=== PATIENT | male | born 1950 | race Caucasian/White ===

== ENCOUNTER 2017-08-03 10:37 | Day surgery (SDC) | payer BC ==
[~2017-08-03] VITALS: Ht 177.8 cm; Wt 72.6 kg
[~2017-08-03 10:37] MED LIST: ASPI-586 PO; MULT1TAB69 PO; OMEG100032 PO
[2017-08-03 10:45] VITALS: BP 137/87
[2017-08-03] MEDS ORDERED: NS IV 500 ML 500 ML ONE (10:47)
[2017-08-03] MEDS ORDERED: NS IV 500 ML 500 ML IV PRN (10:50)
[2017-08-03] MEDS ORDERED: LIDOCAINE JELLY 2% (XYLOCAINE) 5 ML TUBE MM PRN (11:00)
--- NOTE | 2017-08-03 11:18 | Conscious Sedation/ASA ---
Conscious Sedation Pre-Proced Time Reviewed: 11:00 ASA Class: 2 Airway Mallampati Classification: ([place] appropriate class) I. II. III, IV Lungs Heart ASA score ASA 1: a normal healthy patient ASA 2: a patient with a mild systemic disease (mid diabetes, controlled hypertension, obesity ASA 3: a patient with a severe systemic disease that limits activity (angina , COPD, prior Myocardial infarction) ASA 4: a patient with an incapacitating disease that is a constant threat to life (CHF, renal failure) ASA 5: a moribund patient not expected to survive 24 hrs. (ruptured aneurysm) ASA 6: a declared brain patient whose organs are being harvested. For emergent operations, add the letter E after the classification Grade 2 Sedation Plan: Analgesia, Amnesia, Plan communicated to team members, Discussed options with patient/fam, Discussed risks with patient/fam Note The patient is an appropriate candidate to undergo the planned procedure, sedation, and anesthesia. The patient immediately re-assessed prior to indication. IBAN SARABIA MD Aug 03, 2017 11:18 am
--- NOTE | 2017-08-03 11:18 | Progress Note-Pre Operative ---
Pre-Operative Progress Note H&P Reviewed The H&P was reviewed, patient examined and no changes noted. Date Seen by Provider: Aug 03, 2017 Time Seen by Provider: 11:00 Date H&P Reviewed: Aug 03, 2017 Time H&P Reviewed: 11:00 Pre-Operative Diagnosis: IBAN Yost MD Aug 03, 2017 11:18 am
[2017-08-03] MEDS ORDERED: MIDAZOLAM 2 MG/2 ML (VERSED) VIAL ONE ×4 (11:24→12:15)
[2017-08-03] MEDS ORDERED: fentaNYL INJECTION 100 MCG/2 ML AMP ONE (11:25)
[2017-08-03] MEDS ORDERED: LIDOCAINE JELLY 2% (XYLOCAINE) 5 ML TUBE ONE (11:25)
[2017-08-03] MEDS ORDERED: ACETAMINOPHEN 325 MG TABLET/CAPLET (TYLENOL) PO PRN (11:30)
[2017-08-03] MEDS ORDERED: ONDANSETRON 4 MG/2 ML (SDV) Z0FRAN IV PRN (11:30)
[2017-08-03] MEDS ORDERED: HYDROcodone/APAP 5 MG/325 MG (LORTAB) TAB PO PRN (11:30)
[2017-08-03] MEDS ORDERED: morphine INJ 10 MG/ML 1ML (SYR OR VIAL) IV PRN (11:30)
[2017-08-03] MEDS: fentaNYL INJECTION 100 MCG/2 ML AMP IVP PRN ×2 (11:55→12:25)
[2017-08-03] MEDS: MIDAZOLAM 2 MG/2 ML (VERSED) VIAL IVP PRN ×4 (11:57→12:30)
--- NOTE | 2017-08-03 12:45 | Progress Note-Post Operative ---
Post-Operative Progess Note Surgeon (s)/[employer] Custodian (s) Surgeon IBAN SARABIA MD [employer] Custodian: none Pre-Operative Diagnosis screening Post-Operative Diagnosis normal colon and rectum Procedure & Operative Findings Date of Procedure 08/03/17 Procedure Performed/Findings Colonoscopy Anesthesia Type CS Estimated Blood Loss Estimated blood loss (mL): minimal Specimens/Packing Specimens Removed none IBAN SARABIA MD Aug 03, 2017 12:45 pm
--- NOTE | 2017-08-03 12:46 | Discharge Inst-Surgical ---
D/C Lap Instructions-CORNELL Follow Up 10 years Activity as tolerated High Fiber Diet 25g or more per day Avoid Alcohol, Caffeine, Spicy [place] and Acid foods. Drink 64 fluid oz or more of fluids per day. Symptoms to Report: Fever over 101 degree F, Nausea/Vomiting If any problems/questions: Contact your physician or go to Emergency Room IBAN SARABIA MD Aug 03, 2017 12:46 pm
[2017-08-03 13:00] VITALS: BP 129/77
[2017-08-03 13:26] VITALS: BP 137/78
[2017-08-03 13:31] VITALS: BP 137/78
--- NOTE | 2017-08-03 15:17 | OPERATIVE REPORT ---
DATE OF SERVICE: 08/03/2017 ATTENDING PRIMARY CARE PHYSICIAN: Evangelist Prado MD PREOPERATIVE DIAGNOSIS: Screening colonoscopy. POSTOPERATIVE DIAGNOSIS: Normal colon and rectum. PROCEDURE: Colonoscopy. SURGEON: Iban Sarabia MD ANESTHESIA: Conscious sedation. ESTIMATED BLOOD LOSS: Minimal. FINDINGS: No significant hemorrhoids. Prostate gland was palpable and appeared normal. The remainder of the colon and rectum were normal. DISPOSITION: The patient tolerated the procedure well. INDICATIONS FOR PROCEDURE: The patient is a 66-year-old male in need of a screening colonoscopy. He has not had a colonoscopy up to this point in his life. He states that he is doing well and does not report any major issues of diarrhea nor constipation as well as no red blood per rectum nor any dark, tarry stools. He does have a remote family history of colon cancer with his maternal grandfather having the disease diagnosed at a later age. DESCRIPTION OF PROCEDURE: The patient was brought to the endoscopy suite, laid in the left lateral decubitus position. After adequate IV pain and sedating medications and conscious sedation anesthesia, a digital rectal examination was performed. No significant hemorrhoids were identified. Normal sphincter tone was felt and there were no palpable masses. Prostate gland was palpable and appeared normal. The endoscope was then intubated to the anus and rectum and gently insufflated. The endoscope was then advanced through the valves of [place] of the rectum with no polyps or any neoplasms identified. The endoscope was then advanced through the sigmoid colon where no diverticulosis identified. The endoscope was then advanced to the remainder of the descending, transverse, ascending colon and the cecum. These segments were normal. There were no polyps or any neoplasms identified. The endoscope was then slowly withdrawn while taking a second look and suctioning of residual air with no additional findings. The patient tolerated the procedure well. We will have him continue with medical management with a high-fiber diet with at least 30 grams of fiber per day as well as at least 64 fluid ounces of water daily to promote soft stools on a daily basis. He does not need another colonoscopy for another 10 years. Job ID: [id number] DocumentID: [id number] Dictated Date: 08/03/2017 12:42:38 Supervisor [place] Date: 08/03/2017 14:08:20 Dictated By: IBAN SARABIA MD
== END 2017-08-03 13:30 | disposition home or self-care (01) ==
LOC: ENDO 10:37
PROVIDERS: ATTEND Surgery
DX: Z12.11 Encounter for screening for malignant neoplasm of colon (principal); Z80.0 Family history of malignant neoplasm of digestive organs; Z79.82 Long term (current) use of aspirin

== ENCOUNTER → 2017-08-09 | Outpatient (CLI) | payer BC | LOC: CARD 13:30 | PROVIDERS: ATTEND Family Medicine | DX: G47.30 Sleep apnea, unspecified (principal) | CPT/HCPCS: 93306 ==

== ENCOUNTER → 2017-08-18 | Outpatient (CLI) | payer BC ==
[~2017-08-18] MED LIST changes: +CATHETER FLUSH 10 ML SYR IV PRN; +IOHEXOL 350 MG/ML 150 ML (OMNIPAQUE 350) VIAL IV ONE; +NS 100 ML (IVPB) BAG IV ONE
--- NOTE | 2017-08-18 19:23 | Diagnostic Imaging Report ---
PROCEDURE: CT angiography of the chest with contrast. TECHNIQUE: Multiple contiguous axial images were obtained through the chest after uneventful bolus administration of intravenous contrast. Reconstructed CTA MIP acquisitions were also performed. INDICATION: Enlarged aorta found on echo. COMPARISON STUDIES: None. FINDINGS: Postcontrast CT scanning of the chest demonstrates ascending aorta to measure 3.7 x 3.5 cm. The descending aorta measures 3.3 cm just distal to the takeoff of the subclavian artery. This then becomes 2.9 cm. Mid descending aorta is 2.4 cm. No arteriosclerotic disease is present. Heart size is normal. There are no pleural or pericardial effusions. Small mediastinal lymph nodes within normal limits. Lungs are clear. There is normal takeoff of the great vessels from the arch. Visualized portions of the abdomen are normal. The osseous structures demonstrate minimal degenerative changes. IMPRESSION: The ascending aorta measures up to 3.7 x 3.5 cm. Dictated by: Dictated on workstation # [id number]
== END ==
LOC: RAD 16:26
PROVIDERS: ATTEND Family Medicine
DX: I77.89 Other specified disorders of arteries and arterioles (principal)
CPT/HCPCS: 71275